=== PATIENT | male | born 1960 | race Caucasian/White ===

== ENCOUNTER 2019-12-22 02:21 | Emergency (ER) | payer BC ==
[~2019-12-22] VITALS: Ht 177.8 cm; Wt 98.4 kg
[2019-12-22] MEDS ORDERED: ATOR-2 PO (02:48)
[2019-12-22] MEDS ORDERED: FENO43CA6 PO (02:49)
[2019-12-22] MEDS ORDERED: RIVA20TA PO (02:49)
--- NOTE | 2019-12-22 02:55 | NUR ---
THIS IS A 59 YO MALE COMING IN FOR RIGHT SIDED FLANK PAIN STARTING ABOUT AN HOUR AGO, STARTING TO RADIATE AROUND TO ABDOMEN, DENIES N/V/D, DENIES ANY RECENT ILLNESS, DENIES SOB/CP, DENIES RECENT TRAVEL. DENIES PAIN WITH URINATION OR VISIBLE BLOOD IN URINE. VSS IN TRIAGE, PAIN RATED 7/10, PATIENT APPEARS TO BE VERY UNCOMFORTABLE AT THIS TIME. PATIENT PROVIDED UA. SPO2 AND BP MONITORING IN PLACE. CALL LIGHT IN REACH
--- NOTE | 2019-12-22 03:52 | NUR ---
UA COLLECTED AND SENT
[2019-12-22] MEDS ORDERED: KETOROLAC 30 MG/1 ML ONE (03:54)
--- NOTE | 2019-12-22 03:56 | NUR ---
PATIENT MEDICATED PER EMAR, TOLERATED WELL
[2019-12-22] MEDS ORDERED: KETOROLAC 30 MG/1 ML IM ONE (04:00)
[2019-12-22 04:13] LABS: MICROSCOPIC AUTO
[2019-12-22 04:14] LABS: BASOPHILS # (AUTO) 0.03 x10^3/uL (0-0.1); BASOPHILS % (AUTO) 0 % (0-1); EOSINOPHILS # (AUTO) 0.15 x10^3/uL (0-0.4); EOSINOPHILS % (AUTO) 2 % (1-7); LYMPHOCYTES % (AUTO) 24 % (22-44); MD NO; MEAN CORPUSCULAR HEMOGLOBIN 30.2 pg (27.5-34.5); MEAN CORPUSCULAR HGB CONC 34.5 g/dL (33.2-36.2); MEAN CORPUSCULAR VOLUME 87.4 fL (81-97); MONOCYTES # (AUTO) 0.46 x10^3/uL (0.2-0.8); MONOCYTES % (AUTO) 5 % (2-9); NEUTROPHILS # (AUTO) 5.85 x10^3/uL (1.8-6.8); NEUTROPHILS % (AUTO) 69 % (42-75); PLATELET COUNT 218 x10^3/uL (130-400); RED BLOOD COUNT 5.13 x10^6/uL (4.38-5.82)
[2019-12-22 04:20] LABS: CULTURE INDICATED? NO
[2019-12-22 04:22] LABS: ALBUMIN 4.2 g/dL (3.4-5.0); ANION GAP 7 mmol/L (5-15); CALCIUM 9.1 mg/dL (8.5-10.1); CHLORIDE 107 mmol/L (98-107)
--- NOTE | 2019-12-22 04:26 | NUR ---
PATIENT TO CT
[2019-12-22] MEDS ORDERED: OXYcodone/APAP 5/325MG TABLET ONE (05:10)
--- NOTE | 2019-12-22 05:13 | NUR ---
PATIENT MEDICATED PER EMAR, TOLERATED WELL.
[2019-12-22 05:15] VITALS: BP 140/72
[2019-12-22] MEDS ORDERED: OXYcodone/APAP 5/325MG TABLET PO ONE (05:30)
== END 2019-12-22 05:41 | disposition home or self-care (01) ==
LOC: ED 03:21
DX: N20.1 Calculus of ureter (principal); R10.31 Right lower quadrant pain
CPT/HCPCS: 36415; 74176; 80048; 81001; 82040; 85025; 96372; 99284; J1885